=== PATIENT | female | born 1985 | race Caucasian/White ===

== ENCOUNTER 2017-01-01 14:46 | Emergency (ER) | payer OTHER ==
[2017-01-01] MEDS ORDERED: DIPHENHYDRAMINE HCL 50 MG/1 ML VIAL ONE ×2 (15:32→16:03)
[2017-01-01] MEDS ORDERED: KETOROLAC TROMETHAMINE 30 MG/ML 1 ML VIAL ONE (15:32)
[2017-01-01] MEDS ORDERED: CYCLOBENZAPRINE HCL 10 MG TABLET ONE (15:32)
[2017-01-01 15:45] LABS: ABSOLUTE NEUTROPHIL COUNT 7.9 K/mm3 (1.8-7.7); BASO # 0.1 K/mm3 (0.0-0.2); BASO % 0.7 % (0.2-1.0); EOS # 0.2 (0.0-0.5); EOS % 1.4 % (0.9-2.9); IMM NEUT # 0.1 K/mm3 (0-0.2); IMM NEUT% 0.4 % (0-1); LYMPH # 2.1 (1.0-4.8); LYMPH % 18.8 % (15-45); MEAN CELL VOLUME 88.9 fl (81.0-99.0); MEAN CORPUSCULAR HEMOGLOBIN 28.2 pg (27.0-31.0); MEAN CORPUSCULAR HGB CONC 31.7 g/dl (33.0-37.0); MEAN PLATELET VOLUME 9.8 fl (7.4-10.4); MONO # 0.8 (0.0-0.8); MONO % 7.5 % (4-12); NEUT % 71.2 % (43-75); PLATELET COUNT 331 K/mm3 (130-400); RED CELL DISTRIBUTION WIDTH 12.6 % (11.5-14.5)
[2017-01-01 15:57] LABS: ALB/GLOB RATIO 1.1 (>1.0); ALBUMIN 4.3 gm/dL (3.5-5.7); ALT/SGPT 26 U/L (7-52); BLOOD UREA NITROGEN 17 mg/dL (7-25); BUN/CREATININE RATIO 19 (6-20); C-REACTIVE PROTEIN < 0.3 mg/dl (<1.0); CALCIUM 9.6 mg/dL (8.6-10.3); GLOMERULAR FILTRATION RATE 73 mL/min (60-107)
[2017-01-01] MEDS ORDERED: SODIUM CHLORIDE 0.9% 1,000 ML ONE (16:03)
[2017-01-01] MEDS ORDERED: DIAZEPAM 5 MG/ML SYRINGE 2 ML ONE (16:22)
== END 2017-01-01 17:31 | disposition home or self-care (01) ==
LOC: ED 14:46
DX: G24.9 Dystonia, unspecified (principal); E66.9 Obesity, unspecified; M79.7 Fibromyalgia; Z79.899 Other long term (current) drug therapy; Z88.0 Allergy status to penicillin
CPT/HCPCS: 86141; 85025; 82550; 80053; 85651; 96375 ×2; 96376; 99284 ×2; 96374; J1200 ×2; J1885; J3360; J7030

== ENCOUNTER 2017-02-24 06:43 | Day surgery (SDC) | payer OTHER ==
[~2017-02-24 06:43] MED LIST: IV START KIT ONE; LACTATED RINGERS 1,000 ML ONE
[2017-02-24] MEDS ORDERED: PROPOFOL 20 ML IV ONE ×3 (06:56→07:43)
[2017-02-24] MEDS ORDERED: LIDOCAINE 1% (PRES FREE) 5 ML VIAL ONE (06:56)
[2017-02-24 12:00] LABS: HELICOBACTER PYLORII DETECTION NEGATIVE (NEGATIVE)
--- NOTE | 2017-02-28 09:39 | SURGPATH ---
[facility] [address] [place] [id number] Patient Name: MARCELA FRANCO MR#: [id number] : 1985 Gender: F Specimen #: [id number] Collected: 02/24/2017 Received: 02/25/2017 Reported: 02/28/2017 Submitting Phys: CIRA YOST Copy To Phys: [facility] Clinical History / Pre-Operative Diagnosis: GERD Specimen Source / Surgical Procedure Performed: #1-DUODENAL BIOPSY; #2-PYLORUS BIOPSY Interpretation: 1. DUODENUM, BIOPSY: - NO PATHOLOGIC ABNORMALITIES 2. PYLORUS, BIOPSY: - REACTIVE GASTROPATHY Electronically Signed Out Rafi Stevens M.D. Gross Description: #1 The specimen is received in a formalin filled container labeled with the patient's name and "duodenal biopsy". A single marin biopsy is 0.5 cm. Totally embedded in cassette #1. #2 The specimen is received in a formalin filled container labeled with the patient's name and "pylorus biopsy". A single pale marin biopsy is 0.4 cm. Totally embedded in cassette #2. [place] Fry Microscopic Description: 1. The sections show fragments of small bowel mucosa exhibiting a normal architectural pattern without evidence of villous blunting. There are no inflammatory or neoplastic features and there are no microorganisms identified. 2. The sections show gastric mucosa with reactive glands with scant inflammation. There are no Helicobacter-like organisms identified and no evidence of a neoplastic process. 1: 39023 2: 22424 K31.9
== END 2017-02-24 08:20 | disposition home or self-care (01) ==
LOC: SDC 06:43 → EEVIPCON 06:43 → SDC 08:20
PROVIDERS: ATTEND Family Medicine
PROC: 0DJ08ZZ Inspection of Upper Intestinal Tract, Via Natural or Artificial Opening Endoscopic (ICD-10-PCS; principal; 2017-02-24)
DX: K20.8 Other esophagitis (principal); K29.70 Gastritis, unspecified, without bleeding; K29.80 Duodenitis without bleeding; G47.33 Obstructive sleep apnea (adult) (pediatric); M79.7 Fibromyalgia; Z88.0 Allergy status to penicillin
CPT/HCPCS: 87081; 43235; J7120

== ENCOUNTER 2017-03-05 10:18 | Emergency (ER) | payer OTHER ==
[2017-03-05] MEDS ORDERED: ACETAMINOPHEN 325 MG TABLET ONE (11:18)
[2017-03-05] MEDS ORDERED: DEXAMETHASONE 4 MG TABLET ONE (11:18)
[2017-03-05] MEDS ORDERED: DIAZEPAM 5 MG TABLET ONE ×2 (11:18→13:14)
[2017-03-05] MEDS ORDERED: DEXAMETHASONE SOD PHOS 4 MG/1 ML VIAL ONE (11:19)
[2017-03-05 11:21] LABS: HCG,QUALITATIVE URINE NEGATIVE
[2017-03-05] MEDS ORDERED: IBUPROFEN 600 MG TABLET ONE (11:33)
== END 2017-03-05 13:31 | disposition home or self-care (01) ==
LOC: ED 10:18
DX: S46.811A Strain of other muscles, fascia and tendons at shoulder and upper arm level, right arm, initial encounter (principal); R07.9 Chest pain, unspecified; M79.7 Fibromyalgia; X50.0XXA Overexertion from strenuous movement or load, initial encounter; Y92.89 Other specified places as the place of occurrence of the external cause; Y99.0 Civilian activity done for income or pay
CPT/HCPCS: 81025; 99283 ×2; 93005; A9270 ×5; J1100